=== PATIENT | male | born 1975 | race Caucasian/White ===

== ENCOUNTER 2021-04-07 10:15 | Emergency (ER) | payer SELFPAY ==
[2021-04-07 11:14] LABS: HEMATOCRIT 35.9 % (42.0-52.0); HEMOGLOBIN 11.6 g/dl (13.5-17.5); MEAN CORPUSCULAR HEMOGLOBIN 26.5 pg (27.0-33.0); MEAN CORPUSCULAR HGB CONC 32.3 g/dl (32.0-36.5); MEAN CORPUSCULAR VOLUME 82.2 fl (80.0-96.0); PLATELET COUNT, AUTOMATED 316 10^3/uL (150-450); RED BLOOD COUNT 4.37 10^6/uL (4.30-6.10)
[2021-04-07 11:49] LABS: ATYPICAL LYMPH 14 % (0-5); EOSINOPHILS 5 % (0-3); LYMPHOCYTES 29 % (16-44); MONOCYTES 7 % (0-5); NEUTROPHILS 45 % (28-66)
[2021-04-07 11:52] LABS: PLATELET ESTIMATE NORMAL (NORMAL)
--- NOTE | 2021-04-07 12:26 | REP ---
INDICATION: altered mental COMPARISON: None. TECHNIQUE: Axial noncontrast images from the skull base to the vertex with coronal reformations. This CT examination was performed using the following dose reduction techniques: Automated exposure control, adjustment of mA and/or kv according to the patient's size, and use of iterative reconstruction technique. FINDINGS: The ventricles, sulci, and cisterns are normal in position and appearance. Agiular-white differentiation is maintained. No acute intracranial hemorrhage, mass/mass effect, pathology or trauma/injury. No evidence for acute infarction. No extra-axial fluid collection. Calvarium is intact. Paranasal sinuses and mastoid air cells are clear. IMPRESSION: Normal noncontrast head CT. No evidence for acute intracranial pathology or trauma/injury. <Electronically signed by Dagoberto Carlisle > 04/07/21 [id number]
[2021-04-07 12:33] LABS: ALBUMIN 3.3 GM/DL (3.2-5.2); ALT/SGPT 54 U/L (12-78); BILIRUBIN,DIRECT < 0.1 MG/DL (0.0-0.2); BILIRUBIN,TOTAL 0.4 MG/DL (0.2-1.0); BLOOD UREA NITROGEN 9 MG/DL (7-18); CALCIUM LEVEL 9.1 MG/DL (8.5-10.1); CARBON DIOXIDE LEVEL 27 MEQ/L (21-32); CHLORIDE LEVEL 106 MEQ/L (98-107); CREATININE FOR GFR 1.09 MG/DL (0.70-1.30); GLOMERULAR FILTRATION RATE > 60.0 (>60); GLUCOSE, FASTING 79 MG/DL (70-100); POTASSIUM SERUM 4.8 MEQ/L (3.5-5.1); SODIUM LEVEL 139 MEQ/L (136-145); TOTAL PROTEIN 7.4 GM/DL (6.4-8.2)
--- NOTE | 2021-04-07 12:46 | REP ---
INDICATION: altered COMPARISON: None. TECHNIQUE: Portable AP view of the chest FINDINGS: The mediastinum and cardiac silhouette are stable and within normal limits for portable technique. Evaluation of the lung spangler demonstrate mildly increased markings which may reflect an interstitial process. There is a vague 2 cm rounded density in the medial retrocardiac left lower lobe of uncertain etiology. Skeletal structures are intact. IMPRESSION: Cannot exclude left lower lobe mass. Consider PA and lateral views of the chest for more definitive evaluation. <Electronically signed by Dagoberto Carlisle > 04/07/21 [id number]
[2021-04-07] MEDS ORDERED: LIDOCAINE 2% 5ML JELLY UROJET TOP ONE (12:50)
[2021-04-07 15:48] LABS: AMPHETAMINES LEVEL URINE POSITIVE (NEGATIVE); BARBITURATES URINE NEGATIVE (NEGATIVE); BENZODIAZEPINES URINE NEGATIVE (NEGATIVE); CANNABINOIDS URINE NEGATIVE (NEGATIVE); COCAINE METABOLITE URINE NEGATIVE (NEGATIVE); METHADONE URINE NEGATIVE (NEGATIVE); OPIATES URINE NEGATIVE (NEGATIVE); PHENCYCLIDINE URINE NEGATIVE (NEGATIVE)
[2021-04-07 16:33] LABS: ETHYL ALCOHOL (ETHANOL) < 0.003 % (0.000-0.010)
[2021-04-07 16:40] VITALS: BP 147/97
--- NOTE | 2021-04-07 17:47 | ECGEPIP ---
[facility] - ED Test Date: 2021-04-07 Pat Name: AMOL GUTHRIE Department: Room: - Gender: Male [employer]: rs : [id number] Requested By: SURENDRA Chan Order Number: [id number] Reading MD: Nori Grullon Measurements Intervals [place] Rate: 98 P: 50 MT: 138 QRS: 47 QRSD: 84 T: 20 QT: 362 QTc: 462 Interpretive Statements Normal sinus rhythm NSTTW abnormalities increased rate 07/03/18 Electronically Signed on 04-07-2021 17:47:31 EDT by Nori Grullon
--- NOTE | 2021-04-09 12:01 | ED PDOC ---
Post-Departure Follow-Up certified letter sent to the pt re formal reading of cxr. see report. needs CT c hest. find out who pcp is, tell pt needs ct and fax to pcp. if no pcp refer to [facility] and fax there Lula Steiner MD Apr 09, 2021 12:01
== END 2021-04-07 16:50 | disposition home or self-care (01) ==
LOC: EDBD 10:15 → M ED 10:15
DX: F19.220 Other psychoactive substance dependence with intoxication, uncomplicated (principal); R91.8 Other nonspecific abnormal finding of lung field

== ENCOUNTER → 2022-09-14 | Outpatient (REF) | payer SELFPAY ==
[2022-09-14 18:25] LABS: GC DNA AMPLIFICATION NEGATIVE (NEGATIVE)
== END ==
LOC: M LAB REF 16:34
PROVIDERS: ATTEND Family Medicine
DX: F11.20 Opioid dependence, uncomplicated (principal)

== ENCOUNTER → 2022-10-14 | Outpatient (CLI) | payer SELFPAY ==
[2022-10-14 17:08] LABS: HEMOGLOBIN 13.7 g/dl (13.5-17.5); MEAN CORPUSCULAR HEMOGLOBIN 27.9 pg (27.0-33.0); MEAN CORPUSCULAR HGB CONC 32.6 g/dl (32.0-36.5); MEAN CORPUSCULAR VOLUME 85.5 fl (80.0-96.0); PLATELET COUNT, AUTOMATED 212 10^3/uL (150-450); RED BLOOD COUNT 4.91 10^6/uL (4.30-6.10); WHITE BLOOD COUNT 6.2 10^3/uL (4.0-10.0)
[2022-10-14 17:12] LABS: ALBUMIN 3.9 G/DL (3.2-5.2); ALKALINE PHOSPHATASE 83 U/L (46-116); ALT/SGPT 42 U/L (7.0-40); AST/SGOT 31 U/L (<34); BILIRUBIN,TOTAL 0.6 MG/DL (0.3-1.2); BLOOD UREA NITROGEN 13 MG/DL (9-23); CARBON DIOXIDE LEVEL 30 MMOL/L (20-31); CHLORIDE LEVEL 103 MMOL/L (98-107); CREATININE FOR GFR 0.99 MG/DL (0.70-1.30); GLOMERULAR FILTRATION RATE > 60.0 (>60); GLUCOSE, FASTING 76 MG/DL (60-100); POTASSIUM SERUM 3.9 MMOL/L (3.5-5.1); SODIUM LEVEL 140 MMOL/L (136-145); TOTAL PROTEIN 7.4 G/DL (5.7-8.2)
[2022-10-14 17:27] LABS: HEPATITIS B SURFACE ANTIGEN NEGATIVE (NEGATIVE)
[2022-10-14 17:39] LABS: HIV 1&2 SCREEN ATELLICA NEGATIVE (NEGATIVE)
[2022-10-14 17:50] LABS: HEPATITIS C VIRUS ABY INDEX > 11.0 INDEX (<0.8)
== END ==
LOC: M WUC 14:00
PROVIDERS: ATTEND Family Medicine
DX: F11.20 Opioid dependence, uncomplicated (principal)

== ENCOUNTER 2024-09-02 18:45 | Inpatient (IN) | payer SELFPAY ==
[~2024-09-02] VITALS: Ht 188 cm; Wt 80.4 kg
[2024-09-02 19:11] LABS: BASO # 0.1 10^3/uL (0.0-0.2); BASO % 0.4 % (0.0-1.0); EOS % 0.1 % (0.0-3.0); HEMOGLOBIN 12.1 g/dl (13.5-17.5); LYMPH # 2.3 10^3/uL (1.5-5.0); LYMPH % 14.7 % (24.0-44.0); MEAN CORPUSCULAR HEMOGLOBIN 29.4 pg (27.0-33.0); MEAN CORPUSCULAR HGB CONC 33.6 g/dl (32.0-36.5); MEAN CORPUSCULAR VOLUME 87.4 fl (80.0-96.0); MONO # 1.8 10^3/uL (0.0-0.8); MONO % 11.2 % (2.0-8.0); NEUTROPHILS # 11.5 10^3/uL (1.5-8.5); NEUTROPHILS % 72.9 % (36.0-66.0); PLATELET COUNT, AUTOMATED 242 10^3/uL (150-450); RED BLOOD COUNT 4.12 10^6/uL (4.30-6.10); WHITE BLOOD COUNT 15.8 10^3/uL (4.0-10.0)
[2024-09-02] MEDS: LORazepam 2 MG/ML 1ML VIAL IV STA (19:11)
[2024-09-02] MEDS: NS (Normal Saline) 0.9% 1,000 ML IV ONE ×2 (19:12→20:42)
[2024-09-02 19:39] LABS: ETHYL ALCOHOL (ETHANOL) < 0.003 % (0.000-0.010)
[2024-09-02 19:41] LABS: ALBUMIN 4.4 G/DL (3.2-5.2); ALKALINE PHOSPHATASE 60 U/L (40-129); ALT/SGPT 89 U/L (7.0-40); AST/SGOT 382 U/L (<34); BILIRUBIN,DIRECT 0.5 MG/DL (<0.4); BILIRUBIN,TOTAL 1.4 MG/DL (0.3-1.2); BLOOD UREA NITROGEN 38 MG/DL (9-23); CALCIUM LEVEL 9.5 MG/DL (8.5-10.1); CARBON DIOXIDE LEVEL 19 MMOL/L (20-31); CHLORIDE LEVEL 103 MMOL/L (98-107); GLOMERULAR FILTRATION RATE 36.2 (>60); GLUCOSE, FASTING 77 MG/DL (60-100); SODIUM LEVEL 144 MMOL/L (136-145); TOTAL PROTEIN 7.5 G/DL (5.7-8.2)
[2024-09-02 19:44] LABS: THYROID STIMULATING HORMONE 3.023 uIU/ML (0.55-4.78)
[2024-09-02 20:00] LABS: CPK CREATINE PHOSPHOKINASE 17025 U/L (46-171)
[2024-09-02 20:04] LABS: BARBITURATES URINE NEGATIVE (NEGATIVE); BENZODIAZEPINES URINE NEGATIVE (NEGATIVE); CANNABINOIDS URINE NEGATIVE (NEGATIVE); OPIATES URINE NEGATIVE (NEGATIVE); PHENCYCLIDINE URINE NEGATIVE (NEGATIVE)
[2024-09-02 20:12] LABS: AMPHETAMINES LEVEL URINE POSITIVE (NEGATIVE); COCAINE METABOLITE URINE POSITIVE (NEGATIVE); METHADONE URINE POSITIVE (NEGATIVE)
[2024-09-02] MEDS ORDERED: MED REC CURRENTLY UNOBTAINABLE XX SCH (21:35)
[2024-09-02] MEDS ORDERED: MOM 30ML SUSPENSION UDC PO PRN (21:45)
[2024-09-02] MEDS ORDERED: ACETAMINOPHEN 325 MG TAB PO PRN (21:45)
[2024-09-02] MEDS: NS (Normal Saline) 0.9% 1,000 ML IV SCH (22:46)
[2024-09-03] MEDS: HEPARIN SOD (PORCINE) 5000UNITS/ML 1ML VIAL/SYRINGE SC SCH (06:26)
[2024-09-03 06:34] LABS: HEMOGLOBIN 10.9 g/dl (13.5-17.5); MEAN CORPUSCULAR HEMOGLOBIN 29.1 pg (27.0-33.0); MEAN CORPUSCULAR HGB CONC 34.1 g/dl (32.0-36.5); MEAN CORPUSCULAR VOLUME 85.6 fl (80.0-96.0); RED BLOOD COUNT 3.74 10^6/uL (4.30-6.10); WHITE BLOOD COUNT 5.7 10^3/uL (4.0-10.0)
[2024-09-03 07:03] LABS: PROCALCITONIN 0.56 ng/ml
[2024-09-03 07:26] LABS: VENOUS BASE EXCESS -4.5 (-2.0-2.0); VENOUS HCO3 19.4 MMOL/L (23.0-27.0); VENOUS O2 SATURATION 98.5 % (60.0-80.0); VENOUS PARTIAL PRESSURE CO2 32.4 mmHg (38.0-50.0); VENOUS PARTIAL PRESSURE O2 188.8 mmHg (30.0-50.0); VENOUS PH 7.396 UNITS (7.330-7.430); VENOUS STANDARD HCO3 20.7 MMOL/L; VENOUS TOTAL CO2 20.4 MMOL/L (24.0-28.0)
[2024-09-03 07:30] LABS: ALBUMIN 3.2 G/DL (3.2-5.2); ALKALINE PHOSPHATASE 48 U/L (40-129); ALT/SGPT 71 U/L (7.0-40); AST/SGOT 283 U/L (<34); BLOOD UREA NITROGEN 33 MG/DL (9-23); CALCIUM LEVEL 7.7 MG/DL (8.5-10.1); CARBON DIOXIDE LEVEL 22 MMOL/L (20-31); CHLORIDE LEVEL 111 MMOL/L (98-107); CPK CREATINE PHOSPHOKINASE 11136 U/L (46-171); GLOMERULAR FILTRATION RATE > 60.0 (>60); GLUCOSE, FASTING 78 MG/DL (60-100); POTASSIUM SERUM 4.1 MMOL/L (3.5-5.1); SODIUM LEVEL 143 MMOL/L (136-145); TOTAL PROTEIN 5.6 G/DL (5.7-8.2)
[2024-09-03] MEDS ORDERED: MED REC COMMENT (10:36)
[2024-09-03] MEDS ORDERED: HOME MED LIST COMPLETE! XX SCH (10:40)
[2024-09-03] MEDS: LR 1,000 ML IV SCH (11:00)
[2024-09-03] MEDS: cloNIDine 0.1MG TABLET PO SCH (11:44)
[2024-09-03 12:45] LABS: KETONE, URINE AUTO RFX 1+ mg/dL (NEGATIVE); MUCUS, URINE RFX SMALL (NEGATIVE); NITRITE, URINE AUTO RFX NEGATIVE (NEGATIVE); RBC, URINE AUTO RFX 8 /HPF (0-3); SQUAM EPITHELIAL CELL UR AURFX 0 /HPF (0-6); WBC, URINE AUTO RFX 5 /HPF (0-3)
[2024-09-03 12:52] LABS: LEUKOCYTE ESTERASE UR AUTO RFX TRACE (NEGATIVE)
[2024-09-03 15:34] VITALS: BP 144/86; TEMP 97.2; O2SAT 99
[2024-09-03 16:11] LABS: HEPATITIS B SURFACE ANTIGEN NEGATIVE (NEGATIVE)
[2024-09-03 16:32] LABS: HEPATITIS B CORE ANTIBODY IGM NEGATIVE (NEGATIVE)
[2024-09-03 16:43] LABS: HEPATITIS C VIRUS ABY INDEX > 11.00 INDEX (<0.8)
[2024-09-03 20:38] VITALS: BP 117/69; TEMP 98.1; O2SAT 100
[2024-09-04] MEDS: LORazepam 0.5 MG TAB PO PRN (01:00)
[2024-09-04 06:00] VITALS: BP 121/69; TEMP 97.5; O2SAT 97
[2024-09-04 08:24] LABS: BASO % 0.7 % (0.0-1.0); EOS # 0.1 10^3/uL (0.0-0.5); EOS % 2.4 % (0.0-3.0); HEMATOCRIT 31.6 % (42.0-52.0); HEMOGLOBIN 10.6 g/dl (13.5-17.5); LYMPH # 1.7 10^3/uL (1.5-5.0); LYMPH % 41.1 % (24.0-44.0); MEAN CORPUSCULAR HEMOGLOBIN 28.7 pg (27.0-33.0); MEAN CORPUSCULAR HGB CONC 33.5 g/dl (32.0-36.5); MEAN CORPUSCULAR VOLUME 85.6 fl (80.0-96.0); MONO # 0.4 10^3/uL (0.0-0.8); MONO % 9.7 % (2.0-8.0); NEUTROPHILS # 1.9 10^3/uL (1.5-8.5); NEUTROPHILS % 45.6 % (36.0-66.0); PLATELET COUNT, AUTOMATED 130 10^3/uL (150-450); RED BLOOD COUNT 3.69 10^6/uL (4.30-6.10); WHITE BLOOD COUNT 4.2 10^3/uL (4.0-10.0)
[2024-09-04 09:24] LABS: ALBUMIN 2.6 G/DL (3.2-5.2); ALKALINE PHOSPHATASE 47 U/L (40-129); ALT/SGPT 64 U/L (7.0-40); AST/SGOT 175 U/L (<34); BILIRUBIN,DIRECT 0.3 MG/DL (<0.4); BILIRUBIN,TOTAL 0.8 MG/DL (0.3-1.2); BLOOD UREA NITROGEN 13 MG/DL (9-23); CALCIUM LEVEL 7.7 MG/DL (8.5-10.1); CARBON DIOXIDE LEVEL 26 MMOL/L (20-31); CHLORIDE LEVEL 111 MMOL/L (98-107); CPK CREATINE PHOSPHOKINASE 3794 U/L (46-171); GLOMERULAR FILTRATION RATE > 60.0 (>60); GLUCOSE, FASTING 94 MG/DL (60-100); POTASSIUM SERUM 3.6 MMOL/L (3.5-5.1); SODIUM LEVEL 144 MMOL/L (136-145)
[2024-09-04 12:00] VITALS: BP 127/80; TEMP 97.3; O2SAT 99
[2024-09-04 13:51] LABS: PLATELET COUNT, AUTOMATED 131 10^3/uL (150-450)
[2024-09-04 19:45] VITALS: BP 141/85; TEMP 97.9; O2SAT 98
[2024-09-05 04:00] VITALS: BP 151/103; TEMP 98.2; O2SAT 99
[2024-09-05 05:00] VITALS: BP 138/90
[2024-09-05 06:21] LABS: BASO % 0.5 % (0.0-1.0); EOS # 0.1 10^3/uL (0.0-0.5); EOS % 3.7 % (0.0-3.0); HEMATOCRIT 30.3 % (42.0-52.0); HEMOGLOBIN 10.2 g/dl (13.5-17.5); LYMPH # 1.2 10^3/uL (1.5-5.0); LYMPH % 32.5 % (24.0-44.0); MEAN CORPUSCULAR HEMOGLOBIN 28.8 pg (27.0-33.0); MEAN CORPUSCULAR HGB CONC 33.7 g/dl (32.0-36.5); MEAN CORPUSCULAR VOLUME 85.6 fl (80.0-96.0); MONO # 0.4 10^3/uL (0.0-0.8); MONO % 9.4 % (2.0-8.0); NEUTROPHILS % 53.6 % (36.0-66.0); PLATELET COUNT, AUTOMATED 137 10^3/uL (150-450); RED BLOOD COUNT 3.54 10^6/uL (4.30-6.10); WHITE BLOOD COUNT 3.8 10^3/uL (4.0-10.0)
[2024-09-05 07:02] LABS: ALBUMIN 2.6 G/DL (3.2-5.2); ALKALINE PHOSPHATASE 54 U/L (40-129); ALT/SGPT 61 U/L (7.0-40); AST/SGOT 115 U/L (<34); BILIRUBIN,DIRECT 0.2 MG/DL (<0.4); BILIRUBIN,TOTAL 0.5 MG/DL (0.3-1.2); BLOOD UREA NITROGEN 6 MG/DL (9-23); CALCIUM LEVEL 7.9 MG/DL (8.5-10.1); CARBON DIOXIDE LEVEL 28 MMOL/L (20-31); CHLORIDE LEVEL 112 MMOL/L (98-107); CPK CREATINE PHOSPHOKINASE 2001 U/L (46-171); CREATININE FOR GFR 0.78 MG/DL (0.70-1.30); GLOMERULAR FILTRATION RATE > 60.0 (>60); GLUCOSE, FASTING 98 MG/DL (60-100); POTASSIUM SERUM 3.7 MMOL/L (3.5-5.1); SODIUM LEVEL 146 MMOL/L (136-145); TOTAL PROTEIN 5.1 G/DL (5.7-8.2)
[2024-09-05 10:13] VITALS: BP 131/94
[2024-09-05 12:00] VITALS: BP 134/93; TEMP 97.9; O2SAT 98
[2024-09-06 10:28] LABS: HCV RNA QUANTITATION <15 NOT DETECTED IU/mL (NOT DETECTED); HCV RNA log10 <1.18 NOT DETECTED Log IU/mL (NOT DETECTED)
== END 2024-09-05 16:34 | disposition left against medical advice (07) | DRG 351 ==
LOC: EDBD 18:45 → M ED 18:45 → M ED INP 18:46 → M MSPAV 09-03 15:40 → OBSVTOIN 09-04 10:37
PROVIDERS: ADMIT Family Medicine; ATTEND Student in an Organized Health Care Education/Training Program
DX: M62.82 Rhabdomyolysis (principal); N17.9 Acute kidney failure, unspecified; R74.01 Elevation of levels of liver transaminase levels; D72.829 Elevated white blood cell count, unspecified; R45.851 Suicidal ideations; B18.2 Chronic viral hepatitis C; E87.29 Other acidosis; F14.13 Cocaine abuse, unspecified with withdrawal; F15.13 Other stimulant abuse with withdrawal